=== PATIENT | male | born 1935 | race Caucasian/White ===

== ENCOUNTER → 2019-03-06 | Outpatient (CLI) | payer MEDICARE, BC ==
[~2019-03-06] MED LIST: ANTIVERT25 MG PO; CELLCEPT500 MG PO; CENTRUM SILVER1 EAC2 PO; FINASTERIDE5 MG PO; FLOMAX0.4 MG PO; FLONASE 0.05%50 MCG NASAL; IPRATROPIU0.2 MG/1 M INH; IRON; LIPITOR10 MG PO; LUTEIN-ZEAXANT1 EACH PO; MOBIC15 MG PO; MUCINEX1200 MG PO; NIACIN500 M2 PO; NORFLEX100 MG PO; OMEGA-31000 M1 PO; PRESERVISION A1 EAC2 PO; PRILOSEC OTC20 MG PO; SUPER B-50 COM1 EACH PO; TOPICORT 0.25%15 GM TOP; TRAMADOL 50 MG50 MG PO; TRIAMCINOLONE A80 G2 TOP; ZYRTEC10 M4 PO
== END ==
LOC: M.PC 11:50
DX: M54.32 Sciatica, left side (principal); M79.605 Pain in left leg

== ENCOUNTER 2019-12-16 17:06 | Emergency (ER) | payer MEDICARE, BC ==
[~2019-12-16] VITALS: Ht 180.3 cm; Wt 63.5 kg
[2019-12-16] MEDS ORDERED: KEFLEX500 M1 PO (19:43)
[2019-12-16 19:56] VITALS: BP 144/79
== END 2019-12-16 19:57 | disposition home or self-care (01) ==
LOC: M.ERS 17:06
DX: S51.011A Laceration without foreign body of right elbow, initial encounter (principal); Z88.6 Allergy status to analgesic agent; Z91.040 Latex allergy status; Z88.2 Allergy status to sulfonamides; Z88.8 Allergy status to other drugs, medicaments and biological substances; Z91.030 Bee allergy status; Z85.828 Personal history of other malignant neoplasm of skin; W18.39XA Other fall on same level, initial encounter; Y93.89 Activity, other specified; Y92.89 Other specified places as the place of occurrence of the external cause; Y99.8 Other external cause status

== ENCOUNTER 2019-12-25 15:10 | Emergency (ER) | payer MEDICARE, BC ==
[~2019-12-25] VITALS: Ht 180.3 cm; Wt 59.0 kg
[~2019-12-25 15:10] MED LIST changes: +KEFLEX500 M1 PO
[2019-12-25 17:16] LABS: ABSOLUTE BASOPHILS 0.1 thou/uL (0.0-0.2); ABSOLUTE EOSINOPHILS 0.2 thou/uL (0.0-0.7); ABSOLUTE LYMPHOCYTES 1.4 thou/uL (0.8-5.3); ABSOLUTE MONOCYTES 0.5 thou/uL (0.0-1.2); ABSOLUTE NEUTROPHILS 6.3 thou/uL (1.6-8.1); BASOPHILS 0.8 %; EOSINOPHILS 2.5 %; HEMATOCRIT 39.3 % (42.0-52.0); HEMOGLOBIN 14.2 gm/dL (14.0-18.0); LYMPHOCYTES 16.7 %; MCH 36.2 pg (26.0-34.0); MCHC 36.1 g/dL (28.0-37.0); MCV 100.4 fL (80.0-100.0); MONOCYTES 5.9 %; MPV 7.5 fl. (7.2-11.1); NUCLEATED RBCS 0 /100WBC; PLATELET COUNT* 171 thou/uL (150-400); POLYS 74.1 %; RBC 3.92 mil/uL (4.50-6.00); RDW-CV 13.3 % (10.5-14.5); WBC 8.5 thou/uL (4.0-11.0)
[2019-12-25 17:23] LABS: CALCIUM 8.7 mg/dL (8.5-10.1); POTASSIUM 4.8 mmol/L (3.5-5.1)
[2019-12-25 17:28] LABS: ALBUMIN 4.4 g/dL (3.4-5.0); TOTAL BILIRUBIN 0.5 mg/dL (<0.1-1.0); TOTAL PROTEIN 7.3 g/dL (6.4-8.2)
[2019-12-25 17:38] LABS: URINE BILIRUBIN NEGATIVE (Negative); URINE BLOOD NEGATIVE (Negative); URINE CLARITY CLEAR; URINE COLOR YELLOW; URINE GLUCOSE-RANDOM NEGATIVE (Negative); URINE KETONES NEGATIVE (Negative); URINE LEUKOCYTES-REFLEX NEGATIVE (Negative); URINE NITRITE-REFLEX NEGATIVE (Negative); URINE PROTEIN NEGATIVE (Negative); URINE SPECIFIC GRAVITY 1.015 (1.005-1.030); URINE UROBILINOGEN 0.2 E.U./dl (0.2-1.0)
[2019-12-25 19:40] VITALS: BP 172/84
== END 2019-12-25 19:42 | disposition home or self-care (01) ==
LOC: M.ERS 15:10
PROVIDERS: Personal Emergency Response Attendant
DX: K59.00 Constipation, unspecified (principal); Z85.828 Personal history of other malignant neoplasm of skin; Z91.040 Latex allergy status; Z88.2 Allergy status to sulfonamides; Z88.6 Allergy status to analgesic agent; Z88.8 Allergy status to other drugs, medicaments and biological substances

== ENCOUNTER 2020-02-10 10:52 | Emergency (ER) | payer MEDICARE, BC ==
[~2020-02-10] VITALS: Ht 180.3 cm; Wt 65.8 kg
[2020-02-10 11:40] LABS: ABSOLUTE BASOPHILS 0.1 thou/uL (0.0-0.2); ABSOLUTE EOSINOPHILS 0.1 thou/uL (0.0-0.7); ABSOLUTE LYMPHOCYTES 1.7 thou/uL (0.8-5.3); ABSOLUTE MONOCYTES 0.6 thou/uL (0.0-1.2); BASOPHILS 0.8 %; EOSINOPHILS 1.7 %; HEMATOCRIT 37.3 % (42.0-52.0); HEMOGLOBIN 13.4 gm/dL (14.0-18.0); MCH 36.2 pg (26.0-34.0); MCHC 35.9 g/dL (28.0-37.0); MCV 100.6 fL (80.0-100.0); MONOCYTES 7.1 %; MPV 7.8 fl. (7.2-11.1); NUCLEATED RBCS 0 /100WBC; PLATELET COUNT* 152 thou/uL (150-400); POLYS 70.4 %; RDW-CV 12.5 % (10.5-14.5); WBC 8.5 thou/uL (4.0-11.0)
[2020-02-10 11:48] LABS: CALCIUM 8.2 mg/dL (8.5-10.1); CREATININE 1.1 mg/dL (0.6-1.3); POTASSIUM 4.2 mmol/L (3.5-5.1)
[2020-02-10 11:52] LABS: ALBUMIN 3.7 g/dL (3.4-5.0); TOTAL BILIRUBIN 0.6 mg/dL (<0.1-1.0); TOTAL PROTEIN 6.2 g/dL (6.4-8.2)
[2020-02-10 12:35] VITALS: BP 146/75
== END 2020-02-10 12:36 | disposition home or self-care (01) ==
LOC: M.ERS 10:52
PROVIDERS: Family Medicine
DX: K59.00 Constipation, unspecified (principal); Z88.6 Allergy status to analgesic agent; Z88.2 Allergy status to sulfonamides; Z91.040 Latex allergy status; Z88.8 Allergy status to other drugs, medicaments and biological substances; Z91.030 Bee allergy status

== ENCOUNTER 2020-10-15 09:38 | Emergency (ER) | payer MEDICARE, BC ==
[~2020-10-15] VITALS: Ht 180.3 cm; Wt 65.8 kg
[2020-10-15] MEDS ORDERED: MEDROLDOSEPACK PO (10:00)
[2020-10-15] MEDS ORDERED: CYMBALTA20 MG PO (10:00)
[2020-10-15 10:22] LABS: ABSOLUTE BASOPHILS 0.1 thou/uL (0.0-0.2); ABSOLUTE LYMPHOCYTES 1.4 thou/uL (0.8-5.3); ABSOLUTE MONOCYTES 0.6 thou/uL (0.0-1.2); ABSOLUTE NEUTROPHILS 10.8 thou/uL (1.6-8.1); BASOPHILS 0.6 %; EOSINOPHILS 0.1 %; HEMATOCRIT 43.2 % (42.0-52.0); HEMOGLOBIN 14.5 gm/dL (14.0-18.0); LYMPHOCYTES 11.2 %; MCH 32.6 pg (26.0-34.0); MCHC 33.6 g/dL (28.0-37.0); MCV 97.1 fL (80.0-100.0); MONOCYTES 4.9 %; MPV 7.7 fl. (7.2-11.1); NUCLEATED RBCS 0 /100WBC; PLATELET COUNT* 209 thou/uL (150-400); POLYS 83.2 %; RBC 4.45 mil/uL (4.50-6.00); RDW-CV 12.5 % (10.5-14.5); WBC 12.9 thou/uL (4.0-11.0)
[2020-10-15 10:44] LABS: CALCIUM 8.6 mg/dL (8.5-10.1); CREATININE 1.1 mg/dL (0.6-1.3); POTASSIUM 4.2 mmol/L (3.5-5.1)
[2020-10-15 10:48] LABS: ALBUMIN 3.8 g/dL (3.4-5.0); TOTAL BILIRUBIN 0.5 mg/dL (<0.1-1.0); TOTAL PROTEIN 6.8 g/dL (6.4-8.2)
[2020-10-15 12:56] VITALS: BP 122/66
== END 2020-10-15 12:57 | disposition home or self-care (01) ==
LOC: M.ERS 09:38
PROVIDERS: Emergency Medicine Emergency Medical Services
DX: K59.00 Constipation, unspecified (principal); Z88.6 Allergy status to analgesic agent; Z91.040 Latex allergy status; Z88.2 Allergy status to sulfonamides; Z91.030 Bee allergy status; Z88.8 Allergy status to other drugs, medicaments and biological substances; Z85.828 Personal history of other malignant neoplasm of skin